=== PATIENT | female | born 1985 | race Caucasian/White ===

== ENCOUNTER 2016-10-03 14:41 | Outpatient (CLI) ==
[2016-04-14 13:15] VITALS: BMI 29.1
--- NOTE | 2016-10-03 17:07 | MRI ---
EXAM: MRI thoracic spine without IV contrast. DATE: October 2016. HISTORY: Thoracic back pain. TECHNIQUE: Sagittal and axial T1W and T2W sequences of the thoracic spine along with sagittal IR an d coronal T2W sequences were obtained using 1.2 Kait magnet. No IV contrast. COMPARISON: CT T-spine 03/10/2016. CT C-spine 03/10/2016. FINDINGS: Sagittal counting manager willow sequence of the cervical and upper thoracic spine demonstrates sl ight reversal cervical lordosis. No acute c-spine fracture, subluxation, osseous malignancy, or jum ped facet is evident. Cervical vertebra are normal in height. Bone marrow signal is normal. Small posterior disc/osteophyte complex at C5-6 may cause mild central canal stenosis. No cord edema, sy rinx, or myelomalacia is evident. Visible brain and brainstem are unremarkable. No neck mass or ly mphadenopathy is identified. There are 12 thoracic vertebra with paired ribs. No acute T-spine fracture, subluxation, osseous ma lignancy, or jumped facet is evident. Thoracic vertebra are normal in height. Mild anterior wedgin g of the L1 vertebral body with mild posterior cortical buckling near the superior endplate is chron ic. Bone marrow signal is normal. Intervertebral discs are normal in height, except for mild disc space narrowing at T8-9. Conus medullaris terminates at L1-2. No cord edema, syrinx, myelomalacia, or neoplasm is evident. Visible thyroid gland, trachea, thoracic esophagus, and thoracic aorta are normal. No mediastinal l ymphadenopathy, hilar lymphadenopathy, lung mass, pneumonia, or pleural effusion is detected. No ri b lesion, rib fracture, paraspinal mass, or chest wall mass is demonstrated. Visible portions of th e liver, spleen, adrenal glands, and kidneys are normal. Segmental analysis: T1-2: Normal. T2-3: Normal. T3-4: Normal. T4-5: Normal. T5-6: Normal. T6-7: Normal. T7-8: Normal. T8-9: Normal. T9-10: Normal, except for minor bilateral facet arthropathy. T10-11: Normal, except for minor left facet arthropathy. T11-12: Normal. T12-L1: Posterior cortical buckling at the superior endplate. of L1 and small posterior disc bulge do not cause cord compression or central stenosis. Each foramen is patent. IMPRESSIONS: 1. No thoracic disc protrusions/bulge, cord compression, or central stenosis. 2. Minor facet arthropathy at T9-10 and T10-11. 3. Old, mild anterior wedge compression of L1. 4. C5-6 DDD and mild central canal stenosis.
== END 2016-10-03 14:42 | disposition home or self-care (01) ==
LOC: RAD 14:41
PROVIDERS: ATTEND Emergency Medicine
DX: S32.001D Stable burst fracture of unspecified lumbar vertebra, subsequent encounter for fracture with routine healing (principal)

== ENCOUNTER 2016-10-04 14:40 | Outpatient (CLI) | payer OTHER ==
[2016-04-14 13:15] VITALS: BMI 29.1
--- NOTE | 2016-10-04 16:45 | MRI ---
EXAM: MRI lumbar spine without IV contrast. DATE: October. HISTORY: Low back pain. Patient reports history of L1 fracture. TECHNIQUE: Sagittal and axial T1W and T2W sequences of the lumbar spine along with sagittal IR and coronal T2 W sequences were obtained using 1.2 Kait magnet. No IV contrast. COMPARISON: CT L-spine four 04/08/2016. FINDINGS: There are five [id number] lumbar vertebra. There is no lumbar scoliosis. The later al chronic burst fracture with mild anterior vertebral body height loss and posterior cortical buckl ing at the superior endplate of L1 appears similar to prior CT scan. No other acute fracture, sublu xation, osseous malignancy, or pars interarticularis defect is identified. Remaining lumbar vertebr ae normal in height. Bone marrow signal is overall normal. Disc desiccation and minor disc space n arrowing are seen at L5-S1. Remaining intervertebral discs are normal in height. No sacral fractur e or stress reaction is apparent. SI joints are unremarkable. Conus medullaris terminates at L1-2. Visible spinal cord reveals no syrinx, cord edema, or myelomalacia. No retroperitoneal lymphadenopathy, paraspinal mass, or aortic aneurysm is detected. Posterior para spinal muscle atrophy is symmetric bilaterally. Psoas muscles are normal. Visible portions of the liver, spleen, adrenal glands and kidneys are normal. No bowel obstruction or neoplasm is evident. Uterine junctional zone appears thick (10 mm); however, these are not necessarily angle adjusted ax ial images through the uterus. Segmental analysis: T12-L1: Posterior cortical buckling near the superior endplate of L1 does not contact the cord, but does cause triangulation of the canal. Each foramen is patent. L1-2: Minor posterior disc bulge causes triangulation of the canal. Each foramen is patent. L2-3: Normal L3-4: Normal. L4-5: Minor concentric disc bulge causes minor/mild bilateral foraminal narrowing. No central celina l stenosis. L5-S1: Normal. IMPRESSIONS: 1. Lumbar spine minor degenerative disc disease. 2. Triangulation of the canal at T12-L1 and L1-2. 2. Minor/mild bilateral foraminal narrowing at L4-5. No nerve compression. 4. Old L1 compression / burst fracture. No acute lumbar fracture. 5. Possible uterine junctional zone hypertrophy. Correlate for endometriosis.
== END 2016-10-04 14:41 | disposition home or self-care (01) ==
LOC: RAD 14:40
PROVIDERS: ATTEND Emergency Medicine
DX: S32.001D Stable burst fracture of unspecified lumbar vertebra, subsequent encounter for fracture with routine healing (principal)

== ENCOUNTER 2016-12-21 16:25 | Emergency (ER) ==
--- NOTE | 2016-12-21 16:37 | ED.PDOC ---
General ED Provider: Dr. NATALIE SIMON JR Chief Complaint: Fever Stated Complaint: began vomiting late monday early monday morning. states has not been able to keep any food down since monday. Is now able to keep liquids down. Fever intermittent, today as high as 102.1[End]Motrin @ 1030.headache 97.5 81 20 96% 136/93 10 Time Seen by Physician: 16:37 Mode of Arrival: Walk-In Information Source: Patient Exam Limitations: No limitations [facility] Nursing and Triage Documentation Reviewed and Agree: No Review of Systems - Review Of Systems Constitutional: Reports: Fever, Malaise, Weakness Eyes: Reports: No symptoms Ears, Nose, Mouth, Throat: Reports: No symptoms Respiratory: Reports: No symptoms Cardiac: Reports: No symptoms GI: Reports: Abdominal pain, Nausea, Vomiting. Denies: Diarrhea : Reports: No symptoms Musculoskeletal: Reports: No symptoms Skin: Reports: No symptoms Neurological: Reports: No symptoms Endocrine: Reports: No symptoms Hematologic/Lymphatic: Reports: No symptoms All Other Systems: Other Past Medical History - Past Medical History Previously Healthy: Yes Endocrine: Reports: None Cardiovascular: Reports: None Respiratory: Reports: None Hematological: Reports: None Gastrointestinal: Reports: None Genitourinary: Reports: None Neuro/Psych: Reports: None Musculoskeletal: Reports: None Cancer: Reports: None Last Menstrual Period: 2011 - Surgical History General Surgical History: Reports: Cholecystectomy. Denies: Hysterectomy ( OVARIAN CYST. IUD) - Family History Family History: Reports: Unknown - Social History Smoking Status: Current every day smoker Hx Substance Use: No Alcohol Screening: None - Immunizations Tetanus Shot up to Date: Yes Physical Exam - Physical Exam Appearance: Well-appearing Ill-appearing: Mild Pain Distress: Mild Eyes: BENJA, EOMI, Conjunctiva clear ENT: Ears normal, Nose normal, Oropharynx normal, Rhinorrhea Neck: Supple Respiratory: Airway patent, Breath sounds clear, Breath sounds equal, Respirations nonlabored Cardiovascular: RRR, Pulses normal, No rub, No murmur GI/: Soft, Nontender, No masses, Bowel sounds normal, No Organomegaly Musculoskeletal: Normal strength, ROM intact, No edema, No calf tenderness Skin: Warm, Dry, Normal color Neurological: Sensation intact, Motor intact, Reflexes intact, Cranial nerves intact, Alert, Oriented Psychiatric: Affect appropriate, Mood appropriate Critical Care Note - Critical Care Note Total Time (mins): 0 Course - Course Hematology/Chemistry: 12/21/16 17:06 12/21/16 17:06 Orders, Labs, Meds: Lab Review 12/21/16 12/21/16 17:06 17:10 WBC 12.74 H RBC 4.85 Hgb 14.9 Hct 43.9 MCV 90.5 MCH 30.7 MCHC 33.9 RDW Coeff of Anjelica 12.8 Plt Count 326 Immature Gran % (Auto) 0.3 Neut % (Auto) 67.1 Lymph % (Auto) 26.1 [place] % (Auto) 5.3 Eos % (Auto) 0.9 Baso % (Auto) 0.3 Immature Gran # (Auto) 0.0 Neut # 8.6 H Lymph # 3.3 [place] # 0.7 Eos # 0.1 Baso # 0.0 Sodium 141 Potassium 4.2 Chloride 107 Carbon Dioxide 25 Anion Gap 13.2 BUN 9 Creatinine 0.72 Estimated GFR (MDRD) 95.00 BUN/Creatinine Ratio 12.50 Glucose 87 Calcium 9.6 Total Bilirubin 0.24 AST 23 ALT 33 Alkaline Phosphatase 87 Total Protein 7.3 Albumin 4.2 Globulin 3.1 Albumin/Globulin Ratio 1.35 Lipase 44 Urine Color Yellow Urine Clarity Clear Urine pH 7.0 Ur Specific [place] 1.015 Urine Protein Negative Urine Glucose (UA) Negative Urine Ketones Negative Urine Blood Trace-intact Urine Nitrite Negative Urine Bilirubin Negative Urine Urobilinogen 0.2 Ur Leukocyte Esterase Negative Urine Microscopic RBC 0-2 Ur Squamous Epith Cells Not present Orders Category Date Time Status Orthostatic [ED ORTHOSTATIC VITAL SIGNS] .ONCE EMERGENCY 12/21/16 16:39 Active CBC W/ AUTO DIFF Stat LAB 12/21/16 17:06 Completed COMPREHENSIVE METABOLIC PANEL Stat LAB 12/21/16 17:06 Completed LIPASE Stat LAB 12/21/16 17:06 Completed URINALYSIS C & S IF INDICATED Stat LAB 12/21/16 17:10 Completed Ondansetron [Zofran Odt] MEDS 12/21/16 17:14 Discontinued 4 mg PO ONCE STA Medications Discontinued Medications Generic Name Dose Route Start Last Admin Trade Name Freq PRN Reason Stop Dose Admin Ondansetron HCl 4 mg 12/21/16 17:14 Zofran Odt PO 12/21/16 17:15 ONCE STA Vital Signs: Temp Pulse Resp BP Pulse Ox 12/21/16 17:19 142/85 H 12/21/16 17:18 135/76 12/21/16 17:17 86 134/82 12/21/16 16:26 97.5 F L 81 20 136/93 H 96 Departure - Departure Time of Disposition: 17:50 Disposition: HOME SELF-CARE Discharge Problem: Gastritis Instructions: Gastritis (ED) Condition: Good Pt referred to PMD for follow-up: Yes Additional Instructions: clear liquids for 24 hours then regular diet if no nausea Prescriptions: Ondansetron [Zofran Odt] 4 mg PO Q8H PRN #14 tab.rapdis PRN Reason: Nausea / Vomiting Allergies/Adverse Reactions: Allergies codeine Allergy (Intermediate, Unverified 12/21/16 16:35) rash tramadol HCl [From Ultram] Adverse Reaction (Intermediate, Unverified 12/21/16 16:35) hives Home Medications: Ambulatory Orders Levonorgestrel [Mirena] 1 each IY DIRECTED 01/24/16 Acetaminophen [Tylenol] 325 mg PO PRN PRN 09/13/16 Ibuprofen 200 mg PO 2-4XD PRN 09/13/16 Ondansetron [Zofran Odt] 4 mg PO Q8H PRN #14 tab.rapdis 12/21/16
[2016-12-21 16:38] VITALS: TEMP 97.5; BMI 28.9
[2016-12-21 17:14] LABS: BASOPHILS % (AUTO) 0.3 % (0.0-3.0); EOSINOPHILS # (AUTO) 0.1 K/ul (0.0-0.7); EOSINOPHILS % (AUTO) 0.9 % (0.0-7.0); HEMATOCRIT 43.9 % (37.0-47.0); HEMOGLOBIN 14.9 g/dl (12.0-16.0); IMMATURE GRANULOCYTE % (AUTO) 0.3 % (0.0-5.0); LYMPHOCYTES # (AUTO) 3.3 K/uL (0.60-3.4); LYMPHOCYTES % (AUTO) 26.1 (10.0-50.0); MEAN CORPUSCULAR HEMOGLOBIN 30.7 pg (27.0-31.0); MEAN CORPUSCULAR HGB CONC 33.9 (31.8-35.4); MEAN CORPUSCULAR VOLUME 90.5 fl (81.0-99.0); MONOCYTES # (AUTO) 0.7 K/uL (0.4-2.0); MONOCYTES % (AUTO) 5.3 (0-10); NEUTROPHILS # (AUTO) 8.6 K/ul (2.0-6.9); NEUTROPHILS % (AUTO) 67.1; PLATELET COUNT 326 10^3/uL (140-440); RED BLOOD COUNT 4.85 10^6/ul (4.20-5.40); WHITE BLOOD COUNT 12.74 K/ul (4.6-10.2)
[2016-12-21] MEDS ORDERED: ZOFRAN ODT PO STA (17:14)
[2016-12-21 17:19] VITALS: BP 142/85
[2016-12-21 17:19] LABS: BILIRUBIN,URINE Negative (NEGATIVE); KETONES,URINE Negative (NEGATIVE); LEUKOCYTE ESTERASE ,URINE Negative (NEGATIVE); NITRITE,URINE Negative (NEGATIVE); PROTEIN,URINE Negative (NEGATIVE); URINE, BLOOD Trace-intact (NEGATIVE)
[2016-12-21 17:22] LABS: ADD URINE MICROSCOPIC YES
[2016-12-21 17:31] LABS: ALBUMIN 4.2 g/dL (3.4-5.0); ALBUMIN/GLOBULIN RATIO 1.35; ANION GAP 13.2; BILIRUBIN,TOTAL 0.24 mg/dL (0.00-1.20); BUN/CREATININE RATIO 12.5; CALCIUM 9.6 mg/dL (8.2-10.2); CREATININE 0.72 mg/dL (0.60-1.30); POTASSIUM 4.2 mmol/L (3.5-5.10); TOTAL PROTEIN 7.3 g/dL (6.4-8.2)
== END 2016-12-21 18:12 | disposition home or self-care (01) ==
LOC: ED 16:25
DX: K29.70 Gastritis, unspecified, without bleeding (principal); F17.210 Nicotine dependence, cigarettes, uncomplicated; Z79.899 Other long term (current) drug therapy
CPT/HCPCS: 36415; 80053; 81001; 83690; 85025; 99283

== ENCOUNTER 2017-02-24 10:41 | Emergency (ER) ==
[2017-02-24 10:46] VITALS: BP 129/88; TEMP 99.1; BMI 28.6
--- NOTE | 2017-02-24 10:57 | ED.PDOC ---
General ED Provider: Dr. VJ JOHANSEN Chief Complaint: Abdominal Pain Stated Complaint: Woke up 4:30 nausea, vomiting, diarrhea - continues since Time Seen by Physician: 11:10 Mode of Arrival: Walk-In Information Source: Patient Primary Care Provider: JEMAL [facility]ALES[facility] Nursing and Triage Documentation Reviewed and Agree: Yes Review of Systems - Review Of Systems Constitutional: Reports: Malaise, Weakness Respiratory: Reports: Cough (smoker) All Other Systems: Reviewed and Negative Past Medical History - Past Medical History Previously Healthy: Yes Endocrine: Reports: None Cardiovascular: Reports: None Respiratory: Reports: None Hematological: Reports: None Gastrointestinal: Reports: None Genitourinary: Reports: None Neuro/Psych: Reports: None Musculoskeletal: Reports: None Cancer: Reports: None Last Menstrual Period: 5 yrs ago--iud - Surgical History General Surgical History: Reports: Cholecystectomy. Denies: Hysterectomy ( OVARIAN CYST. IUD) - Family History Family History: Reports: Unknown - Social History Smoking Status: Current every day smoker, Heavy tobacco smoker Hx Substance Use: No Alcohol Screening: None Physical Exam - Physical Exam Appearance: Ill-appearing Ill-appearing: Mild Eyes: BENJA, EOMI ENT: Ears normal, Oropharynx normal Neck: Supple Respiratory: Airway patent, Breath sounds clear, Respirations nonlabored Cardiovascular: RRR, Pulses normal GI/: Soft, Nontender, Bowel sounds normal Musculoskeletal: Normal strength, ROM intact, No edema Skin: Warm, Dry, Normal color Neurological: Sensation intact, Motor intact Psychiatric: Affect appropriate, Mood appropriate Critical Care Note - Critical Care Note Total Time (mins): 10 Course - Course Hematology/Chemistry: 02/24/17 11:30 02/24/17 11:30 Orders, Labs, Meds: Lab Review 02/24/17 02/24/17 10:55 11:30 WBC 12.47 H RBC 4.74 Hgb 14.7 Hct 42.5 MCV 89.7 MCH 31.0 MCHC 34.6 RDW Coeff of Anjelica 12.9 Plt Count 282 Immature Gran % (Auto) 0.4 Neut % (Auto) 71.4 Lymph % (Auto) 22.5 [place] % (Auto) 5.3 Eos % (Auto) 0.2 Baso % (Auto) 0.2 Immature Gran # (Auto) 0.1 Neut # 8.9 H Lymph # 2.8 [place] # 0.7 Eos # 0.0 Baso # 0.0 Sodium 139 Potassium 4.0 Chloride 107 Carbon Dioxide 22 Anion Gap 14.0 BUN 6 L Creatinine 0.73 Estimated GFR (MDRD) 94.00 BUN/Creatinine Ratio 8.21 Glucose 92 Calcium 9.3 Total Bilirubin 0.73 AST 27 ALT 36 Alkaline Phosphatase 71 Total Protein 7.0 Albumin 4.2 Globulin 2.8 Albumin/Globulin Ratio 1.50 Urine Color Yellow Urine Clarity Clear Urine pH 7.0 Ur Specific [place] 1.020 Urine Protein Negative Urine Glucose (UA) Negative Urine Ketones Negative Urine Blood Negative Urine Nitrite Negative Urine Bilirubin Negative Urine Urobilinogen 0.2 Ur Leukocyte Esterase Negative Orders Category Date Time Status CBC W/ AUTO DIFF Stat LAB 02/24/17 11:30 Completed COMPREHENSIVE METABOLIC PANEL Stat LAB 02/24/17 11:30 Completed URINALYSIS C & S IF INDICATED Stat LAB 02/24/17 10:55 Completed Sodium Chloride 0.9% [Sodium Chloride] 1,000 ml MEDS 02/24/17 11:23 Discontinued IV BOLUS Medications Discontinued Medications Generic Name Dose Route Start Last Admin Trade Name Freq PRN Reason Stop Dose Admin Sodium Chloride 1,000 mls @ 1,000 mls/hr 02/24/17 11:23 02/24/17 11:38 Sodium Chloride IV 02/24/17 12:22 1,000 mls/hr BOLUS STA Administration Vital Signs: Temp Pulse Resp BP Pulse Ox 02/24/17 10:41 99.1 F 96 H 20 129/88 98 Departure - Departure Time of Disposition: 12:50 Disposition: HOME SELF-CARE Discharge Problem: Gastroenteritis Instructions: Gastroenteritis (ED) Condition: Good Pt referred to PMD for follow-up: Yes Additional Instructions: clear liquids for 24 hrs--make appointment to follow up with md if symptoms persists--return if condition worsens Allergies/Adverse Reactions: Allergies codeine Allergy (Intermediate, Verified 02/24/17 10:48) rash tramadol HCl [From [facility]] Adverse Reaction (Intermediate, Verified 02/24/17 10: 48) hives Home Medications: Ambulatory Orders Levonorgestrel [Mirena] 1 each IY DIRECTED 01/24/16 Acetaminophen [Tylenol] 325 mg PO PRN PRN 09/13/16 Ibuprofen 200 mg PO 2-4XD PRN 09/13/16 Disposition Discussed With: Patient
[2017-02-24 11:09] LABS: BILIRUBIN,URINE Negative (NEGATIVE); KETONES,URINE Negative (NEGATIVE); LEUKOCYTE ESTERASE ,URINE Negative (NEGATIVE); NITRITE,URINE Negative (NEGATIVE); PROTEIN,URINE Negative (NEGATIVE); URINE, BLOOD Negative (NEGATIVE)
[2017-02-24 11:18] LABS: ADD URINE MICROSCOPIC NO
[2017-02-24 11:32] LABS: BASOPHILS % (AUTO) 0.2 % (0.0-3.0); EOSINOPHILS % (AUTO) 0.2 % (0.0-7.0); HEMATOCRIT 42.5 % (37.0-47.0); HEMOGLOBIN 14.7 g/dl (12.0-16.0); IMMATURE GRANULOCYTE % (AUTO) 0.4 % (0.0-5.0); LYMPHOCYTES # (AUTO) 2.8 K/uL (0.60-3.4); LYMPHOCYTES % (AUTO) 22.5 (10.0-50.0); MEAN CORPUSCULAR HGB CONC 34.6 (31.8-35.4); MEAN CORPUSCULAR VOLUME 89.7 fl (81.0-99.0); MONOCYTES # (AUTO) 0.7 K/uL (0.4-2.0); MONOCYTES % (AUTO) 5.3 (0-10); NEUTROPHILS # (AUTO) 8.9 K/ul (2.0-6.9); NEUTROPHILS % (AUTO) 71.4; PLATELET COUNT 282 10^3/uL (140-440); RED BLOOD COUNT 4.74 10^6/ul (4.20-5.40); WHITE BLOOD COUNT 12.47 K/ul (4.6-10.2)
[2017-02-24] MEDS: SODIUM CHLORIDE 1,000 ML IV STA (11:38)
[2017-02-24 11:51] LABS: ALBUMIN 4.2 g/dL (3.4-5.0); ALBUMIN/GLOBULIN RATIO 1.5; BILIRUBIN,TOTAL 0.73 mg/dL (0.00-1.20); BUN/CREATININE RATIO 8.21; CALCIUM 9.3 mg/dL (8.2-10.2); CREATININE 0.73 mg/dL (0.60-1.30)
== END 2017-02-24 12:50 | disposition home or self-care (01) ==
LOC: ED 10:41
DX: K52.9 Noninfective gastroenteritis and colitis, unspecified (principal); F17.200 Nicotine dependence, unspecified, uncomplicated
CPT/HCPCS: 36415; 80053; 81001; 85025; 96360; 99283

== ENCOUNTER 2017-03-01 14:07 | Emergency (ER) ==
[2017-03-01 14:11] VITALS: BP 151/97; TEMP 99.5; BMI 28.4
--- NOTE | 2017-03-01 17:55 | ED.PDOC ---
General <JEMAL ROSALES - Last Filed: 03/01/17 19:35> Stated Complaint: onset lower abd pain on monday--seen this er for work up-- seen at clinic today -sent to er due to pain is worse--pain ti from"hip to hip"- -dr told her she would need ct[End]99.5 84 16 97% 151/[address] ROSALES WANTS PREG TEST CT AND IUD CHECK- IUD 6 YEARS OLD STATES NO BLEEDING UNTIL TODAY - USED MORE THAN A DOZEN PADS TODAY Time Seen by Physician: 17:55 Mode of Arrival: Walk-In Information Source: Patient Exam Limitations: No limitations Nursing and Triage Documentation Reviewed and Agree: No <NATALIE SIMON JR - Last Filed: 03/01/17 20:27> ED Provider: Dr. NATALIE SIMON JR Chief Complaint: Abdominal Pain Primary Care Provider: JEMAL [facility] Review of Systems - Review Of Systems Constitutional: Reports: No symptoms Eyes: Reports: No symptoms Ears, Nose, Mouth, Throat: Reports: No symptoms Respiratory: Reports: No symptoms Cardiac: Reports: No symptoms GI: Reports: Abdominal pain ( RLQ LLQ SUPRAPUBIC) : Reports: Other (bleeding) Musculoskeletal: Reports: No symptoms Skin: Reports: No symptoms Neurological: Reports: No symptoms Endocrine: Reports: No symptoms Hematologic/Lymphatic: Reports: No symptoms All Other Systems: Other <NATALIE SIMON JR - Last Filed: 03/01/17 20:27> Past Medical History - Past Medical History Previously Healthy: Yes Endocrine: Reports: None Cardiovascular: Reports: None Respiratory: Reports: None Hematological: Reports: None Gastrointestinal: Reports: None Genitourinary: Reports: Kidney stones Neuro/Psych: Reports: None Musculoskeletal: Reports: Back Pain (L-1 bulging; L-2, [id number] ) Cancer: Reports: None Last Menstrual Period: now - Surgical History General Surgical History: Reports: Cholecystectomy. Denies: Hysterectomy ( OVARIAN CYST. IUD), Tubal ligation (IUD five years ago no periods for five years ) - Family History Family History: Reports: Unknown - Social History Smoking Status: Current every day smoker, Heavy tobacco smoker Hx Substance Use: No Alcohol Screening: None <NATALIE SIMON JR - Last Filed: 03/01/17 20:27> Physical Exam - Physical Exam Appearance: Well-appearing Pain Distress: Moderate Eyes: BENJA, EOMI, Conjunctiva clear ENT: Ears normal, Nose normal, Oropharynx normal Neck: Supple Respiratory: Airway patent, Breath sounds clear, Breath sounds equal, Respirations nonlabored GI/: Soft, Tender (UTERINE AREA TENDER ONABD EXAM LESS SO LATERALLY- CONSISTENT WITH UTI OR WITH MENSTRUAL PAIN) Neurological: Sensation intact, Motor intact, Reflexes intact, Cranial nerves intact, Alert, Oriented <NATALIE SIMON JR - Last Filed: 03/01/17 20:27> Physician Notification - Case Discussed Time of Notification: 19:35 (dr whatley) <JEMAL ROSALES - Last Filed: 03/01/17 19:35> - Case Discussed Physician Notified: CONNIE Time of Notification: 18:50 <NATALIE SIMON JR - Last Filed: 03/01/17 20:27> Critical Care Note - Critical Care Note Total Time (mins): 20 <NATALIE SIMON JR - Last Filed: 03/01/17 20:27> Course - Course Hematology/Chemistry: 03/01/17 18:08 03/01/17 18:08 <JEMAL ROSALES - Last Filed: 03/01/17 19:35> - Course Hematology/Chemistry: 03/01/17 18:08 03/01/17 18:08 <NATALIE SIMON JR - Last Filed: 03/01/17 20:27> - Course Orders, Labs, Meds: Lab Review 03/01/17 03/01/17 18:08 18:15 WBC 11.91 H RBC 4.58 Hgb 14.2 Hct 41.4 MCV 90.4 MCH 31.0 MCHC 34.3 RDW Coeff of Anjelica 13.2 Plt Count 292 Immature Gran % (Auto) 0.6 Neut % (Auto) 63.3 Lymph % (Auto) 29.6 [place] % (Auto) 5.4 Eos % (Auto) 0.8 Baso % (Auto) 0.3 Immature Gran # (Auto) 0.1 Neut # 7.5 H Lymph # 3.5 H [place] # 0.6 Eos # 0.1 Baso # 0.0 Sodium 138 Potassium 3.5 Chloride 106 Carbon Dioxide 24 Anion Gap 11.5 BUN 11 Creatinine 0.70 Estimated GFR (MDRD) 98.00 BUN/Creatinine Ratio 15.71 Glucose 91 Calcium 8.9 Total Bilirubin 0.29 AST 21 ALT 30 Alkaline Phosphatase 67 Total Protein 6.9 Albumin 4.2 Globulin 2.7 Albumin/Globulin Ratio 1.56 Amylase 28 Lipase 40 HCG, Quant 393.96 Serum , Qual Positive Urine Color Yellow Urine Clarity Clear Urine pH 6.0 Ur Specific [place] 1.020 Urine Protein Negative Urine Glucose (UA) Negative Urine Ketones Negative Urine Blood 3+ Urine Nitrite Negative Urine Bilirubin Negative Urine Urobilinogen 1.0 Ur Leukocyte Esterase Negative Urine Microscopic RBC 0-2 Ur Squamous Epith Cells 30-50 Urine Mucus 3+ Urine Test Negative H. pylori IgG Antibody Negative Orders Category Date Time Status NPO REMINDER: IMAGING ONCE CARE 03/01/17 17:58 Completed ED IV/MEDIPORT/POWERPORT .ONCE EMERGENCY 03/01/17 17:56 Active AMYLASE Stat LAB 03/01/17 18:08 Completed CBC W/ AUTO DIFF Stat LAB 03/01/17 18:08 Completed COMPREHENSIVE METABOLIC PANEL Stat LAB 03/01/17 18:08 Completed H. PYLORI SCREEN Stat LAB 03/01/17 18:08 Completed HCG,QUANTITATIVE Stat LAB 03/01/17 18:08 Completed LIPASE Stat LAB 03/01/17 18:08 Completed SERUM TEST [SERUM ] Stat LAB 03/01/17 18:08 Completed URINALYSIS C & S IF INDICATED Stat LAB 03/01/17 18:15 Completed URINE Stat LAB 03/01/17 18:15 Completed 0.9 % Sodium Chloride [Saline Flush] MEDS 03/01/17 17:56 Ordered 1 syr IVF PRN PRN Ringers Lactated Solution [Lactated Ringers] 1,000 ml MEDS 03/01/17 20:13 Active IV 125 mls/hr Medications Generic Name Dose Route Start Last Admin Trade Name Freq PRN Reason Stop Dose Admin Lactated Ringer's 1,000 mls @ 125 mls/hr 03/01/17 20:13 Lactated Ringers IV 03/02/17 04:12 .Q8H STA Sodium Chloride 1 syr 03/01/17 17:56 Saline Flush IVF PRN PRN To flush IV Vital Signs: Temp Pulse Resp BP Pulse Ox 03/01/17 14:07 99.5 F 84 16 151/97 H 97 Departure - Departure Time of Disposition: 19:36 Pt referred to PMD for follow-up: Yes Disposition Discussed With: Patient <JEMAL ROSALES - Last Filed: 03/01/17 19:35> <NATALIE SIMON JR - Last Filed: 03/01/17 20:27> - Departure Disposition: TSF SHORT-TRM HOSP Discharge Problem: Vaginal bleeding, Discharge Problem: (Ruled Out): Instructions: (ED) Condition: Stable Additional Instructions: FOLLOW UP WITH OBGYN SOON POSSIBLE Allergies/Adverse Reactions: Allergies codeine Allergy (Intermediate, Verified 03/01/17 14:13) rash tramadol HCl [From Ultram] Adverse Reaction (Intermediate, Verified 03/01/17 14: 13) hives Home Medications: Ambulatory Orders Levonorgestrel [Mirena] 1 each IY DIRECTED 01/24/16 Acetaminophen [Tylenol] 325 mg PO PRN PRN 09/13/16 Ibuprofen 200 mg PO 2-4XD PRN 09/13/16
[2017-03-01 18:15] LABS: BASOPHILS % (AUTO) 0.3 % (0.0-3.0); EOSINOPHILS # (AUTO) 0.1 K/ul (0.0-0.7); EOSINOPHILS % (AUTO) 0.8 % (0.0-7.0); HEMATOCRIT 41.4 % (37.0-47.0); HEMOGLOBIN 14.2 g/dl (12.0-16.0); IMMATURE GRANULOCYTE % (AUTO) 0.6 % (0.0-5.0); LYMPHOCYTES # (AUTO) 3.5 K/uL (0.60-3.4); LYMPHOCYTES % (AUTO) 29.6 (10.0-50.0); MEAN CORPUSCULAR HGB CONC 34.3 (31.8-35.4); MEAN CORPUSCULAR VOLUME 90.4 fl (81.0-99.0); MONOCYTES # (AUTO) 0.6 K/uL (0.4-2.0); MONOCYTES % (AUTO) 5.4 (0-10); NEUTROPHILS # (AUTO) 7.5 K/ul (2.0-6.9); NEUTROPHILS % (AUTO) 63.3; PLATELET COUNT 292 10^3/uL (140-440); RED BLOOD COUNT 4.58 10^6/ul (4.20-5.40); WHITE BLOOD COUNT 11.91 K/ul (4.6-10.2)
[2017-03-01 18:21] LABS: BILIRUBIN,URINE Negative (NEGATIVE); KETONES,URINE Negative (NEGATIVE); LEUKOCYTE ESTERASE ,URINE Negative (NEGATIVE); NITRITE,URINE Negative (NEGATIVE); PROTEIN,URINE Negative (NEGATIVE); URINE, BLOOD 3+ (NEGATIVE)
[2017-03-01 18:23] LABS: ADD URINE MICROSCOPIC YES
[2017-03-01 18:25] LABS: H. PYLORI ANTIBODY NEGATIVE (NEGATIVE); H.PYLORI INTERNAL QC INTERNAL QC VALID
[2017-03-01 18:25] LABS: URINE PREGNANCY INTERNAL QC INTERNAL QC VALID
[2017-03-01 18:42] LABS: SERUM PREGNANCY INTERNAL QC INTERNAL QC VALID
[2017-03-01 18:52] LABS: ALBUMIN 4.2 g/dL (3.4-5.0); ALBUMIN/GLOBULIN RATIO 1.56; ANION GAP 11.5; BILIRUBIN,TOTAL 0.29 mg/dL (0.00-1.20); BUN/CREATININE RATIO 15.71; CALCIUM 8.9 mg/dL (8.2-10.2); CREATININE 0.7 mg/dL (0.60-1.30); POTASSIUM 3.5 mmol/L (3.5-5.10); TOTAL PROTEIN 6.9 g/dL (6.4-8.2)
[2017-03-01] MEDS ORDERED: LACTATED RINGERS 1,000 ML IV STA (20:13)
== END 2017-03-01 20:10 | disposition short-term general hospital (02) ==
LOC: ED 14:07
DX: N93.9 Abnormal uterine and vaginal bleeding, unspecified (principal); R10.32 Left lower quadrant pain; R10.31 Right lower quadrant pain; Z33.1 Pregnant state, incidental; F17.210 Nicotine dependence, cigarettes, uncomplicated; Z87.442 Personal history of urinary calculi
CPT/HCPCS: 36415; 80053; 81001; 81025; 82150; 83690; 84702; 84703; 85025; 86677; 99285

== ENCOUNTER 2017-03-01 21:09 | Outpatient (CLI) ==
[2017-03-01 14:11] VITALS: BMI 28.4
== END 2017-03-01 21:10 | disposition home or self-care (01) ==
LOC: AMBL 21:09
PROVIDERS: ATTEND Emergency Medicine
DX: R10.9 Unspecified abdominal pain (principal); N93.9 Abnormal uterine and vaginal bleeding, unspecified; Z33.1 Pregnant state, incidental

== ENCOUNTER 2017-09-14 16:34 | Outpatient (CLI) ==
[2017-09-14 16:54] LABS: FLU INTERNAL QC INTERNAL QC VALID; RAPID FLU A NEGATIVE (NEGATIVE); RAPID FLU B NEGATIVE (NEGATIVE)
== END 2017-09-14 16:35 | disposition home or self-care (01) ==
LOC: LAB 16:34
PROVIDERS: ATTEND Emergency Medicine
DX: J06.9 Acute upper respiratory infection, unspecified (principal)
CPT/HCPCS: 87651; 87804; 87880

== ENCOUNTER 2017-11-05 08:14 | Emergency (ER) ==
[2017-11-05 08:21] VITALS: BP 127/82; TEMP 98.3; BMI 30.5
--- NOTE | 2017-11-05 08:49 | ED.PDOC ---
General ED Provider: Dr. PIPE PIPER Chief Complaint: Rash Stated Complaint: rash Time Seen by Physician: 08:15 (SEEN WITH [facility] student ) Mode of Arrival: Walk-In Information Source: Patient Exam Limitations: No limitations [facility] Documentation Reviewed and Agree: Yes Reviewed sepsis parameters & appropriate labs ordered?: Yes System Inflammatory Response Syndrome: Not Applicable Sepsis Protocol: For patient's 13 years and over: Temp is 96.8 and below OR 101 and greater Pulse >90 BPM Resp >20/minute Acutely Altered Mental Status Are patient's symptoms suggestive of a new infection, such as: -Pneumonia -Skin, Soft Tissue -Endocarditis -UTI -Bone, Joint Infection -Implantable Device -Acute Abdominal Infection -Wound Infection -Meningitis -Blood Stream Catheter Infection -Unknown System Inflammatory Response Syndrome: Not Applicable Skin Complaint Exam - Skin/Soft Tissue Complaint/Exam Onset/Duration: 1 day Symptoms Are: Still present Initial Severity: Moderate Current Severity: Moderate Character: Reports: Redness, Swelling, Raised Aggravating: Reports: None Alleviating: Reports: None Associated Signs and Symptoms: Denies: Fever, Chills, Itching, Drainage, Bruising, Tenderness, Red streaks, Joint swelling Related History: Reports: Similar episode Related Surgical History: Reports: None Recent Exposure to Others w/Similar Symptoms: No Skin Findings: Present: Skin lesion Review of Systems - Review Of Systems Constitutional: Reports: No symptoms Eyes: Reports: No symptoms Ears, Nose, Mouth, Throat: Reports: No symptoms Respiratory: Reports: No symptoms Cardiac: Reports: No symptoms GI: Reports: No symptoms : Reports: No symptoms Musculoskeletal: Reports: No symptoms Skin: Reports: Rash Neurological: Reports: No symptoms Endocrine: Reports: No symptoms Hematologic/Lymphatic: Reports: No symptoms All Other Systems: Reviewed and Negative Past Medical History - Past Medical History Previously Healthy: Yes Endocrine: Reports: None Cardiovascular: Reports: None Respiratory: Reports: None Hematological: Reports: None Gastrointestinal: Reports: None Genitourinary: Reports: Kidney stones Neuro/Psych: Reports: None Musculoskeletal: Reports: Back Pain (L-1 bulging; L-2, [id number]-[id number] ) Cancer: Reports: None Last Menstrual Period: 10/19 - Surgical History General Surgical History: Reports: Cholecystectomy. Denies: Hysterectomy ( OVARIAN CYST. IUD), Tubal ligation (IUD five years ago no periods for five years ) - Family History Family History: Reports: Unknown - Social History Smoking Status: Current every day smoker Hx Substance Use: No Alcohol Screening: None - Immunizations Tetanus Shot up to Date: Yes Physical Exam - Physical Exam Appearance: Well-appearing, No pain distress, Well-nourished Eyes: BENJA, EOMI, Conjunctiva clear ENT: Ears normal, Nose normal, Oropharynx normal Respiratory: Airway patent, Breath sounds clear, Breath sounds equal, Respirations nonlabored Cardiovascular: RRR, Pulses normal, No rub, No murmur GI/: Soft, Nontender, No masses, Bowel sounds normal, No Organomegaly Musculoskeletal: Normal strength, ROM intact, No edema, No calf tenderness Skin: Warm, Dry (rash on the left upper arm left upper arm legs puritic in nature see photos) Neurological: Sensation intact, Motor intact, Reflexes intact, Cranial nerves intact, Alert, Oriented Psychiatric: Affect appropriate, Mood appropriate Critical Care Note - Critical Care Note Total Time (mins): 0 Course - Course Vital Signs: Temp Pulse Resp BP Pulse Ox 11/05/17 08:15 98.3 F 87 16 127/82 97 Departure - Departure Time of Disposition: 08:57 Disposition: HOME SELF-CARE Discharge Problem: Rash Instructions: Acute Rash (ED) Condition: Good Pt referred to PMD for follow-up: Yes IPMP verified?: Yes Additional Instructions: Please call your Family Physician as soon as possible to schedule a follow-up appointment. Allergies/Adverse Reactions: Allergies codeine Allergy (Intermediate, Verified 11/05/17 08:23) rash tramadol HCl [From [facility]] Adverse Reaction (Intermediate, Verified 11/05/17 08: 23) hives
[2017-11-05] MEDS ORDERED: DECADRON 4 MG/ML SDV IM STA (08:59)
[2017-11-05] MEDS ORDERED: BENADRYL IM STA (09:32)
== END 2017-11-05 10:04 | disposition home or self-care (01) ==
LOC: ED 08:14
DX: R21 Rash and other nonspecific skin eruption (principal); F17.210 Nicotine dependence, cigarettes, uncomplicated; L29.9 Pruritus, unspecified
CPT/HCPCS: 96372; 99283

== ENCOUNTER 2017-11-05 22:09 | Emergency (ER) ==
[2017-11-05 22:09] VITALS: BMI 30.5
[2017-11-05 22:19] VITALS: BP 141/93; TEMP 97.7
[2017-11-05] MEDS ORDERED: SOLU-MEDROL 125 MG IVP STA (22:35)
[2017-11-05] MEDS ORDERED: BENADRYL IVP STA (22:35)
[2017-11-05] MEDS ORDERED: PEPCID IVP STA (22:36)
--- NOTE | 2017-11-05 23:40 | ED.PDOC ---
General ED Provider: Dr. STEFAN TENA-ER Chief Complaint: Rash Stated Complaint: tova got these hives Time Seen by Physician: 22:15 Mode of Arrival: Walk-In Information Source: Patient Exam Limitations: No limitations Primary Care Provider: JEMAL ROSALES-[facility] Nursing and Triage Documentation Reviewed and Agree: Yes Reviewed sepsis parameters & appropriate labs ordered?: Yes System Inflammatory Response Syndrome: Not Applicable Sepsis Protocol: For patient's 13 years and over: Temp is 96.8 and below OR 101 and greater Pulse >90 BPM Resp >20/minute Acutely Altered Mental Status Are patient's symptoms suggestive of a new infection, such as: -Pneumonia -Skin, Soft Tissue -Endocarditis -UTI -Bone, Joint Infection -Implantable Device -Acute Abdominal Infection -Wound Infection -Meningitis -Blood Stream Catheter Infection -Unknown Skin Complaint Exam - Skin Rash/Itching Complaint/Exam Onset/Duration: 24hrs Symptoms Are: Still present Initial Severity: Mild Current Severity: Moderate Location: arms and trunk Potential Exposures: Reports: Unknown Prior Treatment: see er visit from this am Aggravating: Reports: None Alleviating: Reports: None Associated Signs and Symptoms: Denies: Difficulty breathing, Fever, Chills Skin Findings: Present: Urticaria Differential Diagnoses: Allergic Reaction Review of Systems - Review Of Systems Constitutional: Reports: No symptoms Eyes: Reports: No symptoms Ears, Nose, Mouth, Throat: Reports: No symptoms Respiratory: Reports: No symptoms Cardiac: Reports: No symptoms GI: Reports: No symptoms : Reports: No symptoms Musculoskeletal: Reports: No symptoms Skin: Reports: Lumps, Rash Neurological: Reports: No symptoms Endocrine: Reports: No symptoms Hematologic/Lymphatic: Reports: No symptoms All Other Systems: Reviewed and Negative Past Medical History - Past Medical History Previously Healthy: Yes Endocrine: Reports: None Cardiovascular: Reports: None Respiratory: Reports: None Hematological: Reports: None Gastrointestinal: Reports: None Genitourinary: Reports: Kidney stones Neuro/Psych: Reports: None Musculoskeletal: Reports: Back Pain (L-1 bulging; L-2, [id number]-[id number] ) Cancer: Reports: None Last Menstrual Period: FEW DAYS AGO - Surgical History General Surgical History: Reports: Cholecystectomy. Denies: Hysterectomy ( OVARIAN CYST. IUD), Tubal ligation (IUD five years ago no periods for five years ) - Family History Family History: Reports: Unknown - Social History Smoking Status: Current every day smoker Hx Substance Use: No Alcohol Screening: None - Immunizations Tetanus Shot up to Date: Yes Physical Exam - Physical Exam Appearance: Well-appearing, No pain distress, Well-nourished Eyes: BENJA, EOMI, Conjunctiva clear ENT: Ears normal Neck: Supple Respiratory: Airway patent, Breath sounds clear, Breath sounds equal, Respirations nonlabored Cardiovascular: RRR GI/: Soft, Nontender, No masses, Bowel sounds normal, No Organomegaly Musculoskeletal: Normal strength Skin: Warm Neurological: Sensation intact, Motor intact, Reflexes intact, Cranial nerves intact, Alert, Oriented Psychiatric: Affect appropriate, Mood appropriate Re-Evaluation - Re-Evaluation Time of Re-Evaluation: 23:40 Status: Improved Vital Signs Stable: Yes Pain Level: 0 Appearance: NAD Lungs: Clear Skin: Warm and Dry Neuro: Alert and Oriented X3 CV: RRR Critical Care Note - Critical Care Note Total Time (mins): 0 Course - Course Orders, Labs, Meds: Orders Category Date Time Status ED IV/MEDIPORT/POWERPORT .ONCE EMERGENCY 11/05/17 22:35 Active 0.9 % Sodium Chloride [Saline Flush] MEDS 11/05/17 22:35 Ordered 1 syr IVF PRN PRN Diphenhydramine Inj [Benadryl] MEDS 11/05/17 22:35 Discontinued 50 mg IVP ONCE STA Famotidine Inj [Pepcid] MEDS 11/05/17 22:36 Discontinued 20 mg IVP ONCE STA Methylprednisolone Sod Succ/Pf [Solu-Medrol 125 mg] MEDS 11/05/17 22:35 Discontinued 125 mg IVP ONCE STA Medications Generic Name Dose Route Start Last Admin Trade Name Freq PRN Reason Stop Dose Admin Sodium Chloride 1 syr 11/05/17 22:35 Saline Flush IVF PRN PRN To flush IV Discontinued Medications Generic Name Dose Route Start Last Admin Trade Name Freq PRN Reason Stop Dose Admin Diphenhydramine HCl 50 mg 11/05/17 22:35 11/05/17 23:00 Benadryl IVP 11/05/17 22:36 50 mg ONCE STA Administration Famotidine 20 mg 11/05/17 22:36 11/05/17 22:59 Pepcid IVP 11/05/17 22:37 20 mg ONCE STA Administration Methylprednisolone Sodium Succinate 125 mg 11/05/17 22:35 11/05/17 22:59 Solu-Medrol 125 Mg IVP 11/05/17 22:36 125 mg ONCE STA Administration Vital Signs: Temp Pulse Resp BP Pulse Ox 11/05/17 22:10 97.7 F 80 18 141/93 H 98 Departure - Departure Time of Disposition: 23:40 Disposition: HOME SELF-CARE Discharge Problem: Pruritic rash Instructions: Urticaria (ED) Condition: Good Pt referred to PMD for follow-up: Yes IPMP verified?: No Additional Instructions: stop antbx---prednisone 30mg x 3 days then 20mgx 2 days then 10mg x 2 days-- jovanny 180mg bid #30--tagamet 300mg bid #30--f/u with pcp Allergies/Adverse Reactions: Allergies codeine Allergy (Intermediate, Verified 11/05/17 22:19) rash tramadol HCl [From Ultram] Adverse Reaction (Intermediate, Verified 11/05/17 22: 19) hives Home Medications: Ambulatory Orders Diphenhydramine HCl [Benadryl] 25 mg PO Q6H PRN 11/05/17 Sulfamethoxazole/Trimethoprim [Bactrim Ds Tablet] 1 each PO BID 5 Days #10 tablet 11/05/17 Disposition Discussed With: Patient
== END 2017-11-05 23:48 | disposition home or self-care (01) ==
LOC: ED 22:09
DX: R21 Rash and other nonspecific skin eruption (principal); L29.9 Pruritus, unspecified; F17.210 Nicotine dependence, cigarettes, uncomplicated

== ENCOUNTER 2017-11-16 07:54 | Emergency (ER) ==
[2017-11-16 08:01] VITALS: BP 132/80; TEMP 97.8; BMI 31.1
--- NOTE | 2017-11-16 08:23 | ED.PDOC ---
General ED Provider: Dr. STEFAN MCCANN Chief Complaint: Rash Stated Complaint: Third ER visit for evaluation of Rash. Two visits on Nov 05. States it seemed to resolve after last visit but then returned. Is present to arms--scattered fine rash--states it is all over--itches--no fever. Present over bilateral upper extremities, volar and doral aspects extending to forearms R>L. Also present on shoulder regions, anterior chest, abdomen. States also has along inner thigh. Only med is Lexapro. Is extremely pruritic 07/11 Time Seen by Physician: 08:18 Mode of Arrival: Walk-In Information Source: Patient [facility] Documentation Reviewed and Agree: Yes Reviewed sepsis parameters & appropriate labs ordered?: Yes System Inflammatory Response Syndrome: Not Applicable Sepsis Protocol: For patient's 13 years and over: Temp is 96.8 and below OR 101 and greater Pulse >90 BPM Resp >20/minute Acutely Altered Mental Status Are patient's symptoms suggestive of a new infection, such as: -Pneumonia -Skin, Soft Tissue -Endocarditis -UTI -Bone, Joint Infection -Implantable Device -Acute Abdominal Infection -Wound Infection -Meningitis -Blood Stream Catheter Infection -Unknown System Inflammatory Response Syndrome: Not Applicable Skin Complaint Exam - Skin Rash/Itching Complaint/Exam Symptoms Are: Worse Initial Severity: Severe Current Severity: Moderate Potential Exposures: Reports: Unknown Prior Treatment: IV Benadryl, Pepcid and IV Solumedrol /PO Prednisone Aggravating: Reports: Clothing Alleviating: Reports: None Associated Signs and Symptoms: Denies: Difficulty breathing, Fever, Chills Related History: Similar episode Skin Findings: Present: Urticaria, Dry scaly skin, Sylvia tracts (forearms, abdomen and chest) Review of Systems - Review Of Systems Constitutional: Reports: No symptoms Eyes: Reports: No symptoms Ears, Nose, Mouth, Throat: Reports: No symptoms Respiratory: Reports: No symptoms Cardiac: Reports: No symptoms GI: Reports: No symptoms : Reports: No symptoms Musculoskeletal: Reports: No symptoms Skin: Reports: Dryness, Rash. Denies: Bruising, Lesions, Lumps Neurological: Reports: No symptoms Endocrine: Reports: No symptoms Hematologic/Lymphatic: Reports: No symptoms All Other Systems: Reviewed and Negative Past Medical History - Past Medical History Previously Healthy: Yes Endocrine: Reports: None Cardiovascular: Reports: None Respiratory: Reports: None Hematological: Reports: None Gastrointestinal: Reports: None Genitourinary: Reports: Kidney stones Neuro/Psych: Reports: None Musculoskeletal: Reports: Back Pain (L-1 bulging; L-2, C-[id number] ) Cancer: Reports: None Last Menstrual Period: last week of october - Surgical History General Surgical History: Reports: Cholecystectomy. Denies: Hysterectomy ( OVARIAN CYST. IUD), Tubal ligation (IUD five years ago no periods for five years ) - Family History Family History: Reports: Unknown - Social History Smoking Status: Current every day smoker Hx Substance Use: No Alcohol Screening: None Lives: Alone Physical Exam - Physical Exam Appearance: Well-appearing, Obese Ill-appearing: Moderate Pain Distress: None Eyes: BENJA, EOMI, Conjunctiva clear, Right pupil size (NML), Left pupil size ( NML) ENT: Ears normal, Nose normal Neck: Supple Respiratory: Airway patent, Breath sounds clear, Breath sounds equal Cardiovascular: RRR, Pulses normal, No rub, No murmur GI/: Soft, Nontender, No masses (Rash across mid abdomen midline) Musculoskeletal: Normal strength Skin: Warm, Dry (Rash as described) Neurological: Sensation intact, Motor intact, Reflexes intact, Cranial nerves intact, Alert, Oriented Psychiatric: Affect appropriate, Mood appropriate, Anxious Re-Evaluation - Re-Evaluation Time of Re-Evaluation: 10:15 Status: Improved Vital Signs Stable: Yes Appearance: NAD Lungs: Clear Skin: Warm and Dry Neuro: Alert and Oriented X3 CV: RRR Critical Care Note - Critical Care Note Total Time (mins): 0 Course - Course Hematology/Chemistry: 11/16/17 08:55 11/16/17 08:55 Orders, Labs, Meds: Lab Review 11/16/17 11/16/17 08:55 08:55 WBC 14.12 H RBC 4.56 Hgb 14.2 Hct 40.3 MCV 88.4 MCH 31.1 H MCHC 35.2 RDW Coeff of Anjelica 13.1 Plt Count 299 Immature Gran % (Auto) 0.6 Neut % (Auto) 66.6 Lymph % (Auto) 25.9 [place] % (Auto) 5.7 Eos % (Auto) 0.8 Baso % (Auto) 0.4 Immature Gran # (Auto) 0.1 Neut # 9.4 H Lymph # 3.7 H [place] # 0.8 Eos # 0.1 Baso # 0.1 ESR 3 Sodium 139 Potassium 3.6 Chloride 107 Carbon Dioxide 23 Anion Gap 12.6 BUN 9 Creatinine 0.67 Estimated GFR (MDRD) 103.00 BUN/Creatinine Ratio 13.43 Glucose 97 Calcium 8.9 Total Bilirubin 0.4 AST 25 ALT 41 Alkaline Phosphatase 78 Total Protein 7.3 Albumin 3.9 Globulin 3.4 Albumin/Globulin Ratio 1.15 Orders Category Date Time Status CBC W/ AUTO DIFF Stat LAB 11/16/17 08:55 Completed CMP [COMPREHENSIVE METABOLIC PANEL] Stat LAB 11/16/17 08:55 Completed ESR Stat LAB 11/16/17 08:55 Completed Diphenhydramine Inj [Benadryl] MEDS 11/16/17 08:41 Discontinued 50 mg IVP ONCE STA Famotidine Inj [Pepcid] MEDS 11/16/17 08:41 Discontinued 20 mg IVP ONCE STA Methylprednisolone Sod Succ/Pf [Solu-Medrol 125 mg] MEDS 11/16/17 08:41 Discontinued 125 mg IVP ONCE STA Medications Discontinued Medications Generic Name Dose Route Start Last Admin Trade Name Freq PRN Reason Stop Dose Admin Diphenhydramine HCl 50 mg 11/16/17 08:41 11/16/17 08:56 Benadryl IVP 11/16/17 08:42 50 mg ONCE STA Administration Famotidine 20 mg 11/16/17 08:41 11/16/17 08:55 Pepcid IVP 11/16/17 08:42 20 mg ONCE STA Administration Methylprednisolone Sodium Succinate 125 mg 11/16/17 08:41 11/16/17 08:56 Solu-Medrol 125 Mg IVP 11/16/17 08:42 125 mg ONCE STA Administration Vital Signs: Temp Pulse Resp BP Pulse Ox 11/16/17 07:54 97.8 F 85 20 132/80 97 Departure - Departure Time of Disposition: 10:30 Disposition: HOME SELF-CARE Discharge Problem: Rash and nonspecific skin eruption Instructions: Acute Rash (ED), Urticaria (ED), Scabies (ED) Condition: Good Pt referred to PMD for follow-up: Yes IPMP verified?: No Additional Instructions: Explained to patient that based upon her characterization of the rash and recurrent nature is suspicious of sabies related rash. Wanted to do skin scraping for microscopy but not available. Proposed treatment with IV meds and if improved to discharge to home with po meds plus Premerthin cream(Elimite) with instructions Out patient follow up with PCP Allergies/Adverse Reactions: Allergies codeine Allergy (Intermediate, Verified 11/16/17 08:02) rash tramadol HCl [From Ultram] Adverse Reaction (Intermediate, Verified 11/16/17 08: 02) hives Home Medications: Ambulatory Orders Diphenhydramine HCl [Benadryl] 25 mg PO Q6H PRN 11/05/17 Diphenhydramine HCl [Benadryl] 25 mg PO Q6H #20 capsule 11/16/17 Permethrin [Elimite Cream] 1 applic TP ONCE #1 tube 11/16/17 Prednisone 10 mg PO DIRECTED #18 tab 11/16/17
[2017-11-16] MEDS: PEPCID IVP STA (08:55)
[2017-11-16] MEDS: BENADRYL IVP STA (08:56)
[2017-11-16] MEDS: SOLU-MEDROL 125 MG IVP STA (08:56)
== END 2017-11-16 11:20 | disposition home or self-care (01) ==
LOC: ED 07:54
DX: R21 Rash and other nonspecific skin eruption (principal)
CPT/HCPCS: 36415; 80053; 85025; 85651; 96374; 96375; 99283; 99284

== ENCOUNTER 2018-03-02 19:41 | Emergency (ER) | payer OTHER ==
[2018-03-02 19:46] VITALS: BP 149/91; TEMP 99.1; BMI 32.5
--- NOTE | 2018-03-02 19:58 | ED.PDOC ---
General ED Provider: Dr. JEMAL ROSALES Chief Complaint: Abdominal Pain Stated Complaint: Came for the LLQ pain, had passed some blood clots 2 days ago , ever since she is been hurting LLQ , the pain is worse today. Time Seen by Physician: 19:58 Mode of Arrival: Walk-In Information Source: Patient Primary Care Provider: JEMAL ROSALES-[facility] Nursing and Triage Documentation Reviewed and Agree: Yes Reviewed sepsis parameters & appropriate labs ordered?: Yes System Inflammatory Response Syndrome: Not Applicable Sepsis Protocol: For patient's 13 years and over: Temp is 96.8 and below OR 101 and greater Pulse >90 BPM Resp >20/minute Acutely Altered Mental Status Are patient's symptoms suggestive of a new infection, such as: -Pneumonia -Skin, Soft Tissue -Endocarditis -UTI -Bone, Joint Infection -Implantable Device -Acute Abdominal Infection -Wound Infection -Meningitis -Blood Stream Catheter Infection -Unknown GI Complaint Exam - Abdominal Pain Complaint/Exam Onset: Gradual Symptoms Are: Still present Timing: Constant Initial Severity: Moderate Current Severity: Moderate Location of Pain: LLQ Character: Reports: Dull, Aching Aggravating: Reports: Movement Alleviating: Reports: None Associated Signs and Symptoms: Denies: Diaphoresis, Fever, Cough, Chest pain, Dizziness, Back pain, Constipation, Blood in stool, Dysuria, Urinary frequency, Decreased urine output, Decreased appetite, Vaginal bleeding, Vaginal discharge , Nausea, Vomiting, Diarrhea, Sore throat, Decreased activity AAA Risk Factors: Reports: None Cardiac Risk Factors: Reports: None Ectopic Risk Factors: Reports: None Ovarian Torsion Risk Factors: Reports: None Surgical Obstruction Risk Factors: Reports: None Related Surgical History: Reports: None Patient Rh Status: Unknown Abdominal Findings: Absent: Pulsatile mass, Abdominal distention, Unequal femoral pulses, Rebound tenderness Differential Diagnoses: UTI, Review of Systems - Review Of Systems Constitutional: Reports: No symptoms Eyes: Reports: No symptoms Ears, Nose, Mouth, Throat: Reports: No symptoms Respiratory: Reports: No symptoms Cardiac: Reports: No symptoms GI: Reports: Abdominal pain : Reports: No symptoms Musculoskeletal: Reports: No symptoms Skin: Reports: No symptoms Neurological: Reports: No symptoms Endocrine: Reports: No symptoms Hematologic/Lymphatic: Reports: No symptoms All Other Systems: Reviewed and Negative Past Medical History - Past Medical History Previously Healthy: Yes Endocrine: Reports: None Cardiovascular: Reports: None Respiratory: Reports: None Hematological: Reports: None Gastrointestinal: Reports: None Genitourinary: Reports: Kidney stones Neuro/Psych: Reports: None Musculoskeletal: Reports: Back Pain (L-1 bulging; L-2, A-[id number] ) Cancer: Reports: None Last Menstrual Period: LAST MONTH - Surgical History General Surgical History: Reports: Cholecystectomy. Denies: Hysterectomy ( OVARIAN CYST. IUD), Tubal ligation (IUD five years ago no periods for five years ) - Family History Family History: Reports: Unknown - Social History Smoking Status: Current every day smoker, Heavy tobacco smoker Smoking Cessation Counseling Time: > 3 min - 10 min Hx Substance Use: No Alcohol Screening: Occasionally - Immunizations Tetanus Shot up to Date: Yes Physical Exam - Physical Exam Appearance: Well-appearing, No pain distress, Well-nourished Eyes: BENJA, EOMI, Conjunctiva clear ENT: Ears normal, Nose normal, Oropharynx normal Respiratory: Airway patent, Breath sounds clear, Breath sounds equal, Respirations nonlabored Cardiovascular: RRR, Pulses normal, No rub, No murmur GI/: Soft, No masses, Bowel sounds normal, No Organomegaly, Tender (LLQ) Musculoskeletal: Normal strength, ROM intact, No edema, No calf tenderness Skin: Warm, Dry, Normal color Neurological: Sensation intact, Motor intact, Reflexes intact, Cranial nerves intact, Alert, Oriented Psychiatric: Affect appropriate, Mood appropriate Interpretation - Radiology Interpretation Radiology Interpretation By: Radiologist Radiology Results: Negative Critical Care Note - Critical Care Note Total Time (mins): 20 Course - Course Hematology/Chemistry: 03/02/18 20:10 03/02/18 20:10 Orders, Labs, Meds: Lab Review 03/02/18 03/02/18 03/02/18 20:00 20:00 20:10 WBC 12.92 H RBC 4.87 Hgb 15.4 Hct 43.2 MCV 88.7 MCH 31.6 H MCHC 35.6 H RDW Coeff of Anjelica 13.0 Plt Count 325 Immature Gran % (Auto) 0.3 Neut % (Auto) 62.3 Lymph % (Auto) 30.7 [place] % (Auto) 5.3 Eos % (Auto) 0.9 Baso % (Auto) 0.5 Immature Gran # (Auto) 0.0 Neut # (Auto) 8.1 H Lymph # (Auto) 4.0 H [place] # (Auto) 0.7 Eos # (Auto) 0.1 Baso # (Auto) 0.1 Sodium Potassium Chloride Carbon Dioxide Anion Gap BUN Creatinine Estimated GFR (MDRD) BUN/Creatinine Ratio Glucose Calcium Total Bilirubin AST ALT Alkaline Phosphatase Total Protein Albumin Globulin Albumin/Globulin Ratio Serum , Qual Urine Color Yellow Urine Clarity Clear Urine pH 5.5 Ur Specific [place] 1.020 Urine Protein Negative Urine Glucose (UA) Negative Urine Ketones Negative Urine Blood Trace-intact Urine Nitrite Negative Urine Bilirubin Negative Urine Urobilinogen 0.2 Ur Leukocyte Esterase Negative Urine Microscopic RBC 2-5 Urine Microscopic WBC 2-5 Ur Squamous Epith Cells 2-5 Urine Bacteria Trace Urine Mucus Trace Urine Test Negative 03/02/18 03/02/18 20:10 20:10 WBC RBC Hgb Hct MCV MCH MCHC RDW Coeff of Anjelica Plt Count Immature Gran % (Auto) Neut % (Auto) Lymph % (Auto) [place] % (Auto) Eos % (Auto) Baso % (Auto) Immature Gran # (Auto) Neut # (Auto) Lymph # (Auto) [place] # (Auto) Eos # (Auto) Baso # (Auto) Sodium 138 Potassium 4.0 Chloride 108 H Carbon Dioxide 12 L Anion Gap 22.0 BUN 9 Creatinine 0.70 Estimated GFR (MDRD) 98.00 BUN/Creatinine Ratio 12.85 Glucose 107 Calcium 9.9 Total Bilirubin 0.3 AST 22 ALT 26 Alkaline Phosphatase 74 Total Protein 8.8 H Albumin 4.2 Globulin 4.6 Albumin/Globulin Ratio 0.91 Serum , Qual Negative Urine Color Urine Clarity Urine pH Ur Specific [place] Urine Protein Urine Glucose (UA) Urine Ketones Urine Blood Urine Nitrite Urine Bilirubin Urine Urobilinogen Ur Leukocyte Esterase Urine Microscopic RBC Urine Microscopic WBC Ur Squamous Epith Cells Urine Bacteria Urine Mucus Urine Test Orders Category Date Time Status CBC W/ AUTO DIFF Stat LAB 03/02/18 20:10 Completed COMPREHENSIVE METABOLIC PANEL Stat LAB 03/02/18 20:10 Completed SERUM Stat LAB 03/02/18 20:10 Completed URINALYSIS C & S IF INDICATED Stat LAB 03/02/18 20:00 Completed URINE Stat LAB 03/02/18 20:[address] ABDOMEN/PELVIS WO CONTRAST Stat RADS 03/02/18 19:54 Taken Vital Signs: Temp Pulse Resp BP Pulse Ox 03/02/18 19:42 99.1 F 89 16 149/91 H 96 Departure - Departure Time of Disposition: 21:06 Disposition: HOME SELF-CARE Discharge Problem: Abdominal pain Instructions: Abdominal Pain (ED) Condition: Stable Pt referred to PMD for follow-up: Yes IPMP verified?: No Additional Instructions: Increase Hydration Tylenol prn f/u with PMD Allergies/Adverse Reactions: Allergies codeine Allergy (Intermediate, Verified 03/02/18 19:45) rash tramadol HCl [From Ultram] Adverse Reaction (Intermediate, Verified 03/02/18 19: 45) hives Disposition Discussed With: Patient
--- NOTE | 2018-03-02 21:18 | CT ---
EXAM: CT abdomen pelvis without contrast HISTORY: Left lower quadrant abdominal pain COMPARISON: CT 03/10/2016 TECHNIQUE: Serial axial images of the abdomen pelvis were performed from the lung bases through the inferior pelvis without contrast. These were viewed in multiple planes. FINDINGS: Abdomen. Images of the lower thorax show no pulmonary infiltrate. There is no intrperitoneal free air. The l iver, spleen, pancreas, adrenal glands are unremarkable. There is no renal calculus. No obstruction of either kidney or ureter is seen. There are changes of previous cholecystectomy. No biliary ducta l dilatation is seen. There is no ascites. There is no small bowel obstruction or bowel wall thicken ing. The appendix is normal. There is diverticulosis of the descending rectosigmoid colon without ev idence of diverticulitis. Pelvis. Uterus seen left of midline. No adnexal mass identified. No free fluid the pelvis. No hernia. Skeletal structures. Bones are free of osteolytic or blastic changes. There is a compression deform ity superior endplate of the L1 vertebra, stable compared to MRI 10/04/2016 IMPRESSION: 1. No bowel or urinary obstruction. Appendix appears normal. There is diverticulosis of the distal descending rectosigmoid colon without evidence of diverticulitis. 2. Solid organs to include liver, spleen, and pancreas show no acute findings. 3. There is no cholelithiasis or biliary ductal dilatation seen.
== END 2018-03-02 21:35 | disposition home or self-care (01) ==
LOC: ED 19:41
DX: R10.32 Left lower quadrant pain (principal); F17.210 Nicotine dependence, cigarettes, uncomplicated
CPT/HCPCS: 36415; 80053; 81001; 81025; 84703; 85025; 99283

== ENCOUNTER 2018-04-05 11:18 | Outpatient (CLI) ==
--- NOTE | 2018-04-05 11:47 | DI ---
EXAM: Four views of the left knee HISTORY: Left knee pain. COMPARISON: Left knee x-rays 12/14/2010 FINDINGS: The medial and lateral compartments are normal. There is no lytic or blastic lesion. The patella is normal in position and appearance. The soft tissues are unremarkable. IMPRESSION: No acute abnormality of the left knee.
== END 2018-04-05 11:19 | disposition home or self-care (01) ==
LOC: RAD 11:18
PROVIDERS: ATTEND Emergency Medicine
DX: M25.562 Pain in left knee (principal); F41.1 Generalized anxiety disorder; F33.1 Major depressive disorder, recurrent, moderate; E66.9 Obesity, unspecified
CPT/HCPCS: 36415; 80061; 84436; 84443; 84479

== ENCOUNTER 2018-07-11 22:26 | Emergency (ER) ==
[2018-07-11 22:27] VITALS: BMI 32.5
[2018-07-11 22:35] VITALS: BP 135/96; TEMP 98.2
[2018-07-11] MEDS ORDERED: SOLU-MEDROL 125 MG IM STA (22:44)
[2018-07-11] MEDS ORDERED: KEFLEX PO STA (22:44)
[2018-07-11] MEDS ORDERED: BENADRYL PO STA (22:44)
--- NOTE | 2018-07-11 22:53 | ED.PDOC ---
General ED Provider: Dr. FARZANEH GONZALEZ Chief Complaint: Bite Stated Complaint: Patient is a 33 year old female who comes to the ER stating that she noticed swelling, tendeness and wound on the Right hand with a small wound. Not sure what happend, Thinks it could be a spider bite. Time Seen by Physician: 22:40 Mode of Arrival: Walk-In Information Source: Patient Exam Limitations: No limitations Primary Care Provider: JONNIE CARD Nursing and Triage Documentation Reviewed and Agree: Yes Does patient meet sepsis criteria?: No System Inflammatory Response Syndrome: Not Applicable Sepsis Protocol: For patient's 13 years and over: Temp is 96.8 and below OR 101 and greater Pulse >90 BPM Resp >20/minute Acutely Altered Mental Status Are patient's symptoms suggestive of a new infection, such as: -Pneumonia -Skin, Soft Tissue -Endocarditis -UTI -Bone, Joint Infection -Implantable Device -Acute Abdominal Infection -Wound Infection -Meningitis -Blood Stream Catheter Infection -Unknown Skin Complaint Exam - Skin/Soft Tissue Complaint/Exam Onset/Duration: 1 day Symptoms Are: Still present Timing: Constant Initial Severity: Moderate Current Severity: Moderate Location: Rigth hand Character: Reports: Redness, Swelling, Raised, Painful Aggravating: Reports: Touch Associated Signs and Symptoms: Reports: Tenderness, Joint swelling Related History: Reports: Insect bite/sting. Denies: Similar episode, Recent trauma, Foreign body, Recent Med change, Prior MRSA/VRE, Recent inpatient, Recent travel, Immunocompromised Related Surgical History: Reports: None Recent Exposure to Others w/Similar Symptoms: No Skin Findings: Present: Other (Large 10 cm raised area on the right had with some redness) Differential Diagnoses: Infection, Lymphangitis Review of Systems - Review Of Systems Constitutional: Reports: No symptoms Eyes: Reports: No symptoms Ears, Nose, Mouth, Throat: Reports: No symptoms Respiratory: Reports: No symptoms Cardiac: Reports: No symptoms GI: Reports: No symptoms : Reports: No symptoms Musculoskeletal: Reports: No symptoms Skin: Reports: Lesions Neurological: Reports: No symptoms Endocrine: Reports: No symptoms Hematologic/Lymphatic: Reports: No symptoms All Other Systems: Reviewed and Negative Past Medical History - Past Medical History Previously Healthy: Yes Endocrine: Reports: None Cardiovascular: Reports: None Respiratory: Reports: None Hematological: Reports: None Gastrointestinal: Reports: None Genitourinary: Reports: Kidney stones Neuro/Psych: Reports: None Musculoskeletal: Reports: Back Pain (L-1 bulging; L-2, [id number]-[id number] ) Cancer: Reports: None Last Menstrual Period: 2 weeks ago - Surgical History General Surgical History: Reports: Cholecystectomy. Denies: Hysterectomy ( OVARIAN CYST. IUD), Tubal ligation (IUD five years ago no periods for five years ) - Family History Family History: Reports: Unknown - Social History Smoking Status: Current every day smoker, Heavy tobacco smoker Hx Substance Use: No Alcohol Screening: Occasionally - Immunizations Tetanus Shot up to Date: Yes Physical Exam - Physical Exam Appearance: Ill-appearing Ill-appearing: Moderate Eyes: BENJA, EOMI, Conjunctiva clear ENT: Nose normal, Oropharynx normal Neck: Supple Respiratory: Airway patent, Breath sounds clear, Breath sounds equal, Respirations nonlabored Cardiovascular: RRR, Pulses normal, No rub, No murmur Musculoskeletal: Edema (Rigth Hand ) Skin: Warm, Dry Neurological: Alert, Oriented Psychiatric: Anxious Critical Care Note - Critical Care Note Total Time (mins): 0 Course - Course Orders, Labs, Meds: Orders Category Date Time Status Cephalexin [Keflex] MEDS 07/11/18 22:44 Discontinued 500 mg PO ONCE STA Diphenhydramine HCl [Benadryl] MEDS 07/11/18 22:44 Discontinued 50 mg PO ONCE STA Methylprednisolone Sod Succ/Pf [Solu-Medrol 125 mg] MEDS 07/11/18 22:44 Discontinued 125 mg IM ONCE STA Medications Discontinued Medications Generic Name Dose Route Start Last Admin Trade Name Freq PRN Reason Stop Dose Admin Cephalexin 500 mg 07/11/18 22:44 07/11/18 22:57 Keflex PO 07/11/18 22:45 500 mg ONCE STA Administration Diphenhydramine HCl 50 mg 07/11/18 22:44 07/11/18 22:57 Benadryl PO 07/11/18 22:45 50 mg ONCE STA Administration Methylprednisolone Sodium Succinate 125 mg 07/11/18 22:44 07/11/18 22:57 Solu-Medrol 125 Mg IM 07/11/18 22:45 125 mg ONCE STA Administration Vital Signs: Temp Pulse Resp BP Pulse Ox 07/11/18 22:29 98.2 F 96 H 20 135/96 H 98 Departure - Departure Time of Disposition: 23:29 Disposition: HOME SELF-CARE Discharge Problem: Insect bite Qualifiers: Encounter type: initial encounter Qualified Code(s): W57.XXXA - Bitten or stung by nonvenomous insect and other nonvenomous arthropods, initial encounter Instructions: Insect Bite or Sting (ED) Condition: Fair Pt referred to PMD for follow-up: Yes IPMP verified?: No Additional Instructions: Take over the counter Benadryl as needed for itching and swelling. Follow up with PCP in 3 days Take steroids and antibiotics as prescribed. Prescriptions: Cephalexin [Keflex] 500 mg PO Q8HR #30 capsule Prednisone 20 mg PO DAILYWM #5 tablet Allergies/Adverse Reactions: Allergies codeine Allergy (Intermediate, Verified 07/11/18 22:29) rash tramadol HCl [From [facility]] Adverse Reaction (Intermediate, Verified 07/11/18 22: 29) hives Home Medications: Ambulatory Orders Cephalexin [Keflex] 500 mg PO Q8HR #30 capsule 07/11/18 Prednisone 20 mg PO DAILYWM #5 tablet 07/11/18 Disposition Discussed With: Patient, Family
== END 2018-07-11 23:45 | disposition home or self-care (01) ==
LOC: ED 22:26
DX: S60.561A Insect bite (nonvenomous) of right hand, initial encounter (principal); W57.XXXA Bitten or stung by nonvenomous insect and other nonvenomous arthropods, initial encounter; F17.210 Nicotine dependence, cigarettes, uncomplicated
CPT/HCPCS: 96372; 99282

== ENCOUNTER 2018-10-27 10:23 | Emergency (ER) ==
[2018-10-27 10:27] VITALS: BP 169/110; TEMP 98.2; BMI 34.0
--- NOTE | 2018-10-27 10:55 | ED.PDOC ---
General ED Provider: Dr. STEFAN MCCANN Chief Complaint: Urinary Problem Stated Complaint: Burning, urgency and frequency of urinatiion. Patient states she has experienced painful urination for past week and is experiencing lower abdominal and lower back pain. Denies fever. This morning noted blood in urine with increased frequency of urinaton voiding approx every 30 min. Time Seen by Physician: 10:40 Mode of Arrival: Walk-In Information Source: Patient Primary Care Provider: JONNIE CARD Nursing and Triage Documentation Reviewed and Agree: Yes Does patient meet sepsis criteria?: No System Inflammatory Response Syndrome: Not Applicable Sepsis Protocol: For patient's 13 years and over: Temp is 96.8 and below OR 101 and greater Pulse >90 BPM Resp >20/minute Acutely Altered Mental Status Are patient's symptoms suggestive of a new infection, such as: -Pneumonia -Skin, Soft Tissue -Endocarditis -UTI -Bone, Joint Infection -Implantable Device -Acute Abdominal Infection -Wound Infection -Meningitis -Blood Stream Catheter Infection -Unknown Complaint Exam - UTI Female Complaint/Exam Patient Complains of: Reports: Painful urination, Blood in urine Onset/Duration: 2 days Symptoms Are: Still present Initial Severity: Mild Current Severity: Moderate Location of Pain: Reports: Suprapubic (and lower back) Associated Signs and Symptoms: Denies: Fever, Chills, Flank pain, Dyspareunia, Vaginal discharge Related Surgical History: Reports: None CVA Tenderness: No Suprapubic Tenderness: Yes Differential Diagnoses: Cystitis, Other (UTI) Review of Systems - Review Of Systems Constitutional: Reports: No symptoms Eyes: Reports: No symptoms Ears, Nose, Mouth, Throat: Reports: No symptoms Respiratory: Reports: No symptoms Cardiac: Reports: No symptoms GI: Reports: No symptoms : Reports: Burning, Dysuria, Frequency, Pain, Urgency Musculoskeletal: Reports: No symptoms Skin: Reports: No symptoms Neurological: Reports: No symptoms Endocrine: Reports: No symptoms Hematologic/Lymphatic: Reports: No symptoms All Other Systems: Reviewed and Negative Past Medical History - Past Medical History Previously Healthy: Yes Endocrine: Reports: None Cardiovascular: Reports: None Respiratory: Reports: None Hematological: Reports: None Gastrointestinal: Reports: None Genitourinary: Reports: Kidney stones Neuro/Psych: Reports: None Musculoskeletal: Reports: Back Pain (L-1 bulging; L-2, I-7-[id number] ) Cancer: Reports: None Last Menstrual Period: 2 weeks ago - Surgical History General Surgical History: Reports: Cholecystectomy. Denies: Hysterectomy ( OVARIAN CYST. IUD), Tubal ligation (IUD five years ago no periods for five years ) - Family History Family History: Reports: Unknown - Social History Smoking Status: Current every day smoker, Heavy tobacco smoker Hx Substance Use: No Alcohol Screening: Occasionally Physical Exam - Physical Exam Appearance: Well-appearing, No pain distress, Well-nourished, Obese Ill-appearing: Mild Pain Distress: Mild Eyes: BENJA, EOMI, Conjunctiva clear ENT: Ears normal, Nose normal, Oropharynx normal Respiratory: Airway patent, Breath sounds clear, Breath sounds equal, Respirations nonlabored Cardiovascular: RRR, Pulses normal, No rub, No murmur GI/: Soft, No masses, Bowel sounds normal, No Organomegaly, Tender ( Suprapubic region ) Musculoskeletal: Normal strength, ROM intact, No edema, No calf tenderness Skin: Warm, Dry, Normal color Neurological: Sensation intact, Motor intact, Reflexes intact, Cranial nerves intact, Alert, Oriented Psychiatric: Affect appropriate, Mood appropriate Critical Care Note - Critical Care Note Total Time (mins): 30 Course - Course Hematology/Chemistry: 10/27/18 10:57 10/27/18 10:57 Orders, Labs, Meds: Lab Review 10/27/18 10/27/18 10/27/18 10:55 10:57 10:57 WBC 11.59 H RBC 4.83 Hgb 14.3 Hct 42.1 MCV 87.2 MCH 29.6 MCHC 34.0 RDW Coeff of Anjelica 12.8 Plt Count 293 Immature Gran % (Auto) 0.4 Neut % (Auto) 58.6 Lymph % (Auto) 32.6 Donley % (Auto) 7.0 Eos % (Auto) 1.1 Baso % (Auto) 0.3 Immature Gran # (Auto) 0.1 Neut # (Auto) 6.8 Lymph # (Auto) 3.8 H Donley # (Auto) 0.8 Eos # (Auto) 0.1 Baso # (Auto) 0.0 Sodium 141.6 Potassium 4.06 Chloride 105.2 Carbon Dioxide 26.6 Anion Gap 13.86 BUN 8.3 Creatinine 0.94 Estimated GFR (MDRD) 69.00 BUN/Creatinine Ratio 8.82 Glucose 91.0 Calcium 9.40 Total Bilirubin 0.35 AST 31.7 ALT 36.6 H Alkaline Phosphatase 66.9 Total Protein 7.41 Albumin 4.52 Globulin 2.89 Albumin/Globulin Ratio 1.56 Urine Color Yellow Urine Clarity Turbid Urine pH 8.5 Ur Specific Willard 1.015 Urine Protein 1+ Urine Glucose (UA) Negative Urine Ketones Negative Urine Blood 3+ Urine Nitrite Negative Urine Bilirubin Negative Urine Urobilinogen 1.0 Ur Leukocyte Esterase 2+ Urine Microscopic RBC 10-20 Urine Microscopic WBC 30-50 Ur Squamous Epith Cells 30-50 Urine Bacteria 1+ Orders Category Date Time Status CBC W/ AUTO DIFF Stat LAB 10/27/18 10:57 Completed CMP [COMPREHENSIVE METABOLIC PANEL] Stat LAB 10/27/18 10:57 Completed UA [URINALYSIS C & S IF INDICATED] Stat LAB 10/27/18 10:55 Completed URINE CULTURE Stat LAB 10/27/18 10:55 Completed Vital Signs: Temp Pulse Resp BP Pulse Ox 10/27/18 10:24 98.2 F 92 H 16 169/110 H 98 Departure - Departure Time of Disposition: 12:05 Disposition: HOME SELF-CARE Discharge Problem: UTI (urinary tract infection) Instructions: Urinary Tract Infection in Women (ED) Condition: Good Pt referred to PMD for follow-up: Yes (1 week) IPMP verified?: No Additional Instructions: Take meds as directed Follow up PCP 7-10 days Prescriptions: Nitrofurantoin Monohyd/M-Cryst [Macrobid] 100 mg PO DAILY 10 Days #20 capsule Phenazopyridine HCl [Pyridium] 100 mg PO TID #15 tablet Allergies/Adverse Reactions: Allergies codeine Allergy (Intermediate, Verified 10/27/18 10:29) rash tramadol HCl [From Ultram] Adverse Reaction (Intermediate, Verified 10/27/18 10: 29) hives Home Medications: Ambulatory Orders Nitrofurantoin Monohyd/M-Cryst [Macrobid] 100 mg PO DAILY 10 Days #20 capsule Phenazopyridine HCl [Pyridium] 100 mg PO TID #15 tablet 10/27/18 Disposition Discussed With: Patient
== END 2018-10-27 12:20 | disposition home or self-care (01) ==
LOC: ED 10:23
DX: N39.0 Urinary tract infection, site not specified (principal); F17.210 Nicotine dependence, cigarettes, uncomplicated
CPT/HCPCS: 36415; 80053; 81001; 85025; 87086; 87186; 99283

== ENCOUNTER 2018-12-28 12:45 | Emergency (ER) ==
[2018-12-28 12:50] VITALS: BP 148/108; TEMP 96.7; BMI 30.9
[2018-12-28] MEDS ORDERED: TETRACAINE 0.5% UNIT-DOSE OP STA (12:57)
--- NOTE | 2018-12-28 12:59 | ED.PDOC ---
General ED Provider: Dr. VJ JOHANSEN Chief Complaint: Eye Problem Stated Complaint: Minwax poly splashed into face/eyes. Went to shower and flushed for 30 minutes. No other complaints except burning of eyes bilaterally Time Seen by Physician: 13:00 Mode of Arrival: Walk-In Information Source: Patient, Family Primary Care Provider: JONNIE CARD Nursing and Triage Documentation Reviewed and Agree: Yes Does patient meet sepsis criteria?: No System Inflammatory Response Syndrome: Not Applicable Sepsis Protocol: For patient's 13 years and over: Temp is 96.8 and below OR 101 and greater Pulse >90 BPM Resp >20/minute Acutely Altered Mental Status Are patient's symptoms suggestive of a new infection, such as: -Pneumonia -Skin, Soft Tissue -Endocarditis -UTI -Bone, Joint Infection -Implantable Device -Acute Abdominal Infection -Wound Infection -Meningitis -Blood Stream Catheter Infection -Unknown Review of Systems - Review Of Systems Constitutional: Reports: No symptoms Eyes: Reports: Blurred vision, Inflammation, Pain, Photophobia Ears, Nose, Mouth, Throat: Reports: No symptoms Respiratory: Reports: No symptoms Cardiac: Reports: No symptoms All Other Systems: Reviewed and Negative Past Medical History - Past Medical History Previously Healthy: Yes Endocrine: Reports: None Cardiovascular: Reports: None Respiratory: Reports: None Hematological: Reports: None Gastrointestinal: Reports: None Genitourinary: Reports: Kidney stones Neuro/Psych: Reports: None Musculoskeletal: Reports: Back Pain (L-1 bulging; L-2, [id number]-[id number] ) Cancer: Reports: None Last Menstrual Period: 2 weeks ago - Surgical History General Surgical History: Reports: Cholecystectomy. Denies: Hysterectomy ( OVARIAN CYST. IUD), Tubal ligation (IUD five years ago no periods for five years ) - Family History Family History: Reports: Unknown - Social History Smoking Status: Current every day smoker, Heavy tobacco smoker Hx Substance Use: No Alcohol Screening: Occasionally Physical Exam - Physical Exam Appearance: Well-appearing Pain Distress: Moderate (Burning eyes bilat; photophobia) Eyes: BENJA, Conjunctiva inflammed Respiratory: Airway patent, Breath sounds clear Skin: Warm, Dry, Normal color Psychiatric: Affect appropriate, Mood appropriate, Anxious Critical Care Note - Critical Care Note Total Time (mins): 10 Course - Course Vital Signs: Temp Pulse Resp BP Pulse Ox 12/28/18 12:45 96.7 F L 88 20 148/108 H 98 Departure - Departure Time of Disposition: 13:51 Disposition: HOME SELF-CARE Discharge Problem: Conjunctivitis of both eyes Qualifiers: Conjunctivitis type: other Qualified Code(s): H10.89 - Other conjunctivitis Instructions: Conjunctivitis (ED) Condition: Stable Pt referred to PMD for follow-up: Yes (Follow up with [facility] care provider) IPMP verified?: Yes (No RX identified) Additional Instructions: Follow up with primary care; return to ER if worsening pain in 24 hours. Use prednisone as prescribed as well as Ibuprofen (non steroidal) Prescriptions: Prednisone 20 mg PO DAILYWM #12 tablet Allergies/Adverse Reactions: Allergies codeine Allergy (Intermediate, Verified 12/28/18 12:52) rash tramadol HCl [From Ultram] Adverse Reaction (Intermediate, Verified 12/28/18 12: 52) hives Home Medications: Ambulatory Orders Prednisone 20 mg PO DAILYWM #12 tablet 12/28/18
[2018-12-28] MEDS ORDERED: DECADRON 10 MG/ML SDV (RHC/FCC ONLY) IM STA (13:10)
[2018-12-28] MEDS ORDERED: DECADRON 4 MG/ML SDV IM STA (13:14)
== END 2018-12-28 14:18 | disposition home or self-care (01) ==
LOC: ED 12:45
DX: H10.89 Other conjunctivitis (principal); T15.92XA Foreign body on external eye, part unspecified, left eye, initial encounter; T15.91XA Foreign body on external eye, part unspecified, right eye, initial encounter; F17.210 Nicotine dependence, cigarettes, uncomplicated
CPT/HCPCS: 96372; 99283

== ENCOUNTER 2022-09-15 03:28 | Observation (INO) ==
[2022-09-15 03:38] VITALS: BP 141/79
[2022-09-15 04:01] LABS: BASOPHILS % (AUTO) 0.2 % (0.0-3.0); EOSINOPHILS # (AUTO) 0.1 K/ul (0.0-0.7); EOSINOPHILS % (AUTO) 0.2 % (0.0-7.0); HEMATOCRIT 43.3 % (37.0-47.0); HEMOGLOBIN 14.5 g/dl (12.0-16.0); IMMATURE GRANULOCYTE # (AUTO) 0.2 (0.0-1.0); IMMATURE GRANULOCYTE % (AUTO) 0.7 % (0.0-5.0); LYMPHOCYTES # (AUTO) 1.4 K/uL (0.60-3.4); LYMPHOCYTES % (AUTO) 6.6 (10.0-50.0); MEAN CORPUSCULAR HEMOGLOBIN 30.3 pg (27.0-31.0); MEAN CORPUSCULAR HGB CONC 33.5 (31.8-35.4); MEAN CORPUSCULAR VOLUME 90.4 fl (81.0-99.0); MONOCYTES # (AUTO) 1.4 K/uL (0.4-2.0); MONOCYTES % (AUTO) 6.9 (0-10); NEUTROPHILS # (AUTO) 17.9 K/ul (2.0-6.9); NEUTROPHILS % (AUTO) 85.4 % (42.2-75.2); PLATELET COUNT 244 10^3/uL (140-440); RDW COEFFICIENT OF VARIATION 12.9 % (11.6-14.8); RED BLOOD COUNT 4.79 10^6/ul (4.20-5.40)
[2022-09-15] MEDS ORDERED: TORADOL IM ONE (04:03)
[2022-09-15] MEDS ORDERED: SODIUM CHLORIDE 1,000 ML IV STA (04:05)
[2022-09-15 04:11] LABS: MONONUCLEOSIS SCREEN NEGATIVE (NEGATIVE)
[2022-09-15 04:14] LABS: ALBUMIN 4.37 g/dL (3.5-5.0); ALKALINE PHOSPHATASE 83.5 U/L (38-126); ASPARTATE AMINO TRANSFERASE 54.4 U/L (14-36); BILIRUBIN,TOTAL 0.54 mg/dL (0.2-1.3); BLOOD UREA NITROGEN 6.2 mg/dL (7-17); CALCIUM 8.26 mg/dL (8.4-10.2); CARBON DIOXIDE 26.5 mmol/L (22-30.0); CHLORIDE 107.1 mmol/L (98-107); CREATININE 0.48 mg/dL (0.60-1.30); GLUCOSE 123.7 mg/dL (74-106); POTASSIUM 3.39 mmol/L (3.5-5.1); TOTAL PROTEIN 7.15 g/dL (6.3-8.2)
[2022-09-15 04:15] LABS: CREATINE KINASE 33.8 U/L (30-135)
[2022-09-15] MEDS ORDERED: TORADOL IVP STA (04:20)
[2022-09-15 04:28] LABS: TROPONIN I < 0.012 ng/ml (0.0000-0.120)
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
[2022-09-15 04:40] LABS: SERUM PREGNANCY NEGATIVE (NEGATIVE)
[2022-09-15 05:03] LABS: BILIRUBIN,URINE Negative (NEGATIVE); CLARITY,URINE Clear (CLEAR); COLOR,URINE Yellow (YELLOW); GLUCOSE, URINE (UA) Negative (NEGATIVE); KETONES,URINE Negative (NEGATIVE); LEUKOCYTE ESTERASE ,URINE Negative (NEGATIVE); NITRITE,URINE Negative (NEGATIVE); PROTEIN,URINE Negative (NEGATIVE); URINE, BLOOD Trace-intact (NEGATIVE)
[2022-09-15 05:11] LABS: URINE RBC, MICROSCOPIC 0-2 (0-2)
[2022-09-15] MEDS ORDERED: ROCEPHIN 1 GM/50 ML D5W 1 GM/50 ML BAG IV ONE (06:35)
[2022-09-15 08:11] LABS: SARS COV-2 RNA RAPID NAAT NEGATIVE (NEGATIVE)
[2022-09-15] MEDS ORDERED: TYLENOL PO PRN (08:20)
[2022-09-15] MEDS ORDERED: SODIUM CHLORIDE 1,000 ML IV SCH (08:30)
--- NOTE | 2022-09-15 08:37 | CT ---
Exam: CT of the abdomen and pelvis with contrast Technique: [address] of the abdomen and pelvis with contrast FINDINGS: The lung bases are clear. No significant liver abnormality. The adrenals, pancreas and s pleen are unremarkable. The stomach and hiatus are unremarkable.Prior cholecystectomy. Kidneys and proximal collecting system are unremarkable. The appendix is normal. Bowel loops demonstrate normal caliber. No inflamatory change seen in the mesentery or retroperitoneum. Vascular structures appea r normal. Small fatty umbilical hernia without complication. Pelvic genitourinary structures appear normal. Pelvic bowel loops are unremarkable. No inflammatory change in the pelvic fat. No acute abnormality of the abdominal or pelvic skeleton. Chronic wedge deformity of the L1. Impression: 1. No inflammatory process, bowel or urinary obstruction. No acute findings of the abdomen and pelvi s. All CT scans are performed using dose optimization techniques as appropriate to the performed exam an d include at least one of the following: Automated exposure control, adjustment of the mA and/or kV according t o size, and the use of iterative reconstruction technique.
--- NOTE | 2022-09-15 08:37 | CT ---
Exam: CT angiography of the chest History: Shortness of breath Technique: 2.[address] of the chest utilizing CT angiography protocol. Multiplanar and m aximum intensity projection reformations were performed. FINDINGS: Borderline technical adequacy. The exam is adequate for evaluation of pulmonary arteries to the level of the first order and some second order branching. No pulmonary artery filling defects are seen. Subtle tree-in-bud nodular infiltrate in the right lower lobe. The lungs are clear other parekh. The aorta is normal. Normal heart and pericardium. No mediastinal lymphadenopathy. No acute chest wall abnormality. No acute findings of the upper abdomen. Impression: 1. Inhibited study. No evidence of pulmonary thrombus at the first order and some second order bran francisco. Small distal thrombus could be missed. 2. Subtle tree-in-bud nodular infiltrate in the right lower lobe. Correlate for pneumonia. 3. No acute findings of the chest otherwise All CT scans are performed using dose optimization techniques as appropriate to the performed exam an d include at least one of the following: Automated exposure control, adjustment of the mA and/or kV according t o size, and the use of iterative reconstruction technique.
[2022-09-15] MEDS ORDERED: LEVAQUIN 750 MG/150 ML D5W 750 MG/150 ML BAG IV SCH (09:00)
[2022-09-15] MEDS ORDERED: LOVENOX SUBCUT SCH ×2 (09:00)
[2022-09-15] MEDS ORDERED: K-DUR PO SCH (09:00)
[2022-09-15] MEDS ORDERED: ROCEPHIN 1 GM/50 ML D5W 1 GM/50 ML BAG IV SCH (09:00)
[2022-09-15] MEDS ORDERED: DUONEB NEB PRN (09:09)
[2022-09-15 09:38] VITALS: TEMP 98.6; BMI 31.7
[2022-09-15] MEDS ORDERED: CEPACOL SORE THROAT LOZENGE MUCOUSMEMB PRN (10:02)
[2022-09-15] MEDS: SOLU-MEDROL 40 MG IVP SCH ×2 (10:22→14:00)
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
== END 2022-09-15 14:09 | disposition left against medical advice (07) ==
LOC: ED 03:28 → INTOOBSV 08:16 → MEDSURG A 08:16
PROVIDERS: ADMIT Emergency Medicine Emergency Medical Services; ATTEND Emergency Medicine Emergency Medical Services
DX: R07.9 Chest pain, unspecified; J44.9 Chronic obstructive pulmonary disease, unspecified; R63.0 Anorexia; R06.02 Shortness of breath; Z72.0 Tobacco use; J18.9 Pneumonia, unspecified organism; D72.829 Elevated white blood cell count, unspecified